=== PATIENT | female | born 1955 | race Caucasian/White ===

== ENCOUNTER → 2017-06-08 | Outpatient (CLI) | payer BC ==
[~2017-06-08] MED LIST: ACE3 PO; ASCO-182 PO; ASCO500C9 PO; ASPI-1471 PO; CALC500T6 PO; CHOL200074 PO; CYA1000 PO; CYAN100088 PO; ERGO400T10 PO; FERR159T PO; FERR55TA2 PO; FLU IM; GLUC-135 PO; GLUC-198 PO; LEV88 PO; LEVO-3 PO; LEVO-317 PO; LEVO88TA45 PO; OMEG-96 PO; VITA-200 PO; VITE400 PO
--- NOTE | 2017-06-09 10:27 | RADIOLOGY IMAGING REPORT ---
[place]AC[place] [facility] [place] NAME: SHANNON GRANT : [id number] MR: [id number] V: [id number] EXAM DATE: [id number] ORDERING PHYSICIAN: CRISTY JONES TECHNOLOGIST: Sandra Akins PROCEDURE:BILATERAL DIGITAL SCREENING MAMMOGRAM WITH CAD ASSISTED INTERPRETATION & 3D TOMOSYNTHESIS COMPARISON: Prior mammograms 05/14/16, 05/10/16, 05/09/15, 05/06/14, 05/03/13, 05/02/12 INDICATIONS:screening FINDINGS: Moderately heterogeneous fibroglandular tissue is seen throughout the breasts. The parenchymal pattern has remained stable allowing for difference in mammographic technique & patient positioning. There is no evidence of malignant appearing mass, malignant appearing calcifications or other secondary sign of malignancy in either breast. DIAGNOSTIC CATEGORY 1--NEGATIVE. RECOMMENDATIONS: ROUTINE MAMMOGRAM AND CLINICAL EVALUATION. IMPRESSION: BIRADS 1: Negative No significant abnormality is seen Dictated by: Bonny Prater M.D. on 06/08/2017 at 15:09 Transcribed by: MATEO on 06/08/2017 at 15:57 Approved by: Bonny Prater M.D. on 06/09/2017 at 10:26 [facility]
== END ==
LOC: MAMO 02:28
PROVIDERS: ATTEND Internal Medicine
DX: Z12.31 Encounter for screening mammogram for malignant neoplasm of breast (principal)
CPT/HCPCS: 77063; 77067

== ENCOUNTER 2017-06-16 09:29 | Outpatient (RCR) | payer BC ==
[2017-06-13 09:40] VITALS: BP 119/79
[2017-06-13 09:43] LABS: PLATELET COUNT, AUTOMATED 273 K/uL (150-450)
[2017-06-16 09:51] VITALS: BP 121/77
--- NOTE | 2017-06-17 03:42 | [facility] ONCOLOGY NOTE ---
EVENT DATE: June 16, 2017 DIAGNOSES 1. Stage II colon cancer. 2. Hypothyroidism. CHIEF COMPLAINT Patient is here today for followup of her colon cancer. ONCOLOGY HISTORY Karla is a 62-year-old female who was diagnosed with colon cancer at the age of 57 in July 2012. She had a strong family history of cancer. PRESENTATION Intermittent abdominal pain, diarrhea and abdominal pain. DIAGNOSTIC EVALUATION CT of abdomen done July 20, 2012 showed obstructing soft tissue mass at the hepatic flexure of the colon, compatible with colon cancer associated with small bowel obstruction and moderate distention, fluid-filled small bowel loops throughout the abdomen and pelvis. There was single sub-cm hypodensity in the left lobe of the liver. PROCEDURE Right hemicolectomy done on July 20, 2012. PATHOLOGY Positive for moderately differentiated colonic adenocarcinoma, 4 cm in size, grade II-III with tumor invading through the smooth muscle wall into the pericolonic adipose tissue. Twenty lymph nodes were negative for metastasis. STAGING WORKUP 1. PET/CT scan done September 27, 2012 was unremarkable except for 3 mm right lower lobe micro nodule, likely benign STAGE Stage II (t3N0M0). HISTORY OF PRESENT ILLNESS Patient is here today for followup of her colon cancer. She is doing very well currently, and she is totally asymptomatic. She had her colonoscopy for last year, and she had a polyp which was removed, and she is followed by Dr. Sharma for that. PAST MEDICAL HISTORY 1. Colon cancer. 2. Hypothyroidism. PAST SURGICAL HISTORY 1. July 2012 the patient had right hemicolectomy for colon cancer. 2. July 1984 the patient had tubal ligation. FAMILY HISTORY Sister had breast cancer in her forties. Brother with colon cancer in his fifties. Paternal grandmother with ovarian cancer in her eighties. Paternal cousin with breast cancer in her forties. SOCIAL HISTORY The patient is and has two children. 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 She never smoked. Denies any abuse of alcohol or illicit drugs. MEDICATIONS Ergocalciferol (Vitamin D2) (Vitamin D2)400 Unit [id number] Unit PO QDAY 01/22/14 Aspirin (Aspir 81)81 Mg Tablet.dr81 Mg PO QDAY 01/22/14 Levothyroxine Sodium 88 Mcg Dflzae56 Mcg PO QDAY 01/22/14 Calcium Carbonate (Calcium)500 Mg Dmkeqr721 Mg PO QDAY 01/22/14 [place]-3 Fatty Acids/Fish Oil ([place] 3 1,000 Mg Softgel)1 Each Capsule1 Each PO QDAY 12/25/13 Cholecalciferol (Vitamin D3) (Vitamin D-3)2,000 Unit Capsule2,000 Unit PO QDAY 12/25/13 Vitamin E Acetate (Vitamin E)400 Unit Hzqbhzg982 Unit PO QDAY 12/25/13 Ascorbic Acid (Vitamin C)500 Mg Capsule.er500 Mg PO QDAY 12/25/13 Glucosa Marcelino 2KCL/Chondroitin Marcelino (Glucosamine & Chondroitin Cap)1 Each Capsule1 Each PO QDAY 12/25/13 Ferrous Sulfate, Dried (Iron)159 Mg Tablet.er159 Mg PO QDAY 12/25/13 Cyanocobalamin (Vitamin B-12) (Vitamin B-12)1,000 Mcg Tablet1,000 Mcg PO QDAY 12/25/13 ALLERGIES No known drug allergies. REVIEW OF SYSTEMS CONSTITUTIONAL: No appetite or weight change. No fever, chills or sweating. No recent infection. HEENT: Ears: No tinnitus or hearing problem. Nose: No nasal discharge or epistaxis. Throat: No sore throat or mouth ulcers. Eyes: No diplopia or visual changes. RESPIRATORY: No shortness of breath. No cough, expectoration or hemoptysis. CARDIOVASCULAR: No chest pain, orthopnea, or paroxysmal nocturnal dyspnea (PND) . No edema. No palpitations. GASTROINTESTINAL: No nausea or vomiting. No diarrhea or constipation. No change in bowel movements. No heartburn or swallowing difficulties. No abdominal pain. No jaundice. No hematemesis, melena or rectal bleeding. GENITOURINARY: No hematuria or dysuria. MUSCULOSKELETAL: No pain in the muscles, joints or bones. NEUROLOGICAL: No tingling or numbness in the hands or feet. No headaches or convulsions. HEMATOLOGIC/LYMPHATIC: No bleeding or easy bruising. No weakness or fatigued. No enlarged lymph nodes. SKIN: No skin rash or lumps. PSYCHIATRIC: No anxiety or depression. PHYSICAL EXAMINATION GENERAL: Looks stable. Well-developed, well-nourished, and in no acute distress. VITAL SIGNS: Blood pressure 121/77, pulse 66 per minute, respirations 16 per minute, temperature 98.1, pulse oximetry 96% on room air. HEENT: Head: Atraumatic. No sinus tenderness to palpation. Eyes: No icterus or conjunctivitis. Mouth and throat: No oral thrush or mucositis. NECK: Supple. No cervical or supraclavicular lymphadenopathy. LUNGS: Clear to auscultation and percussion bilaterally. HEART: Regular rate and rhythm. No gallops, murmurs, clicks or rubs. ABDOMEN: Soft and lax. No tenderness. No hepatosplenomegaly. No masses. EXTREMITIES: No cyanosis, clubbing or edema. LYMPHATICS: No peripheral lymphadenopathy. NEUROLOGICAL: Conscious, alert and oriented times three. No focal motor or sensory deficits. PSYCHIATRIC: Mood and affect appear normal. SKIN: No skin rash, bruise or purpuric eruption. DIAGNOSTIC DATA CBC shows a white count 5000, hemoglobin 14.5, hematocrit 42.8, platelets 273, 000. Chem panel totally normal except blood sugar 71. CEA is normal at 2.3. ASSESSMENT 1. Stage II (T3 N0 M0) colonic adenocarcinoma status post right hemicolectomy done July 20, 2012 with 20 lymph nodes negative for metastasis. No adjuvant chemotherapy was indicated in her case. Patient currently in complete remission. Her CEA is normal at 2.3, which is also stable. I am planning to continue followup. I will see her again now in one year, as the patient is five years since her diagnosis, and I will check her CBC, chem panel and CEA with her next visit. 2. Hypothyroidism on thyroid supplement. PLAN 1. Continue followup. 2. Patient to return in one year with CBC, chem panel and CEA. 3. Patient is to contact us for any new concerns or complaints. NEAL
== END 2017-06-17 12:29 | disposition home or self-care (01) ==
LOC: ONC 09:29
PROVIDERS: ATTEND Internal Medicine Hematology
DX: Z85.038 Personal history of other malignant neoplasm of large intestine (principal); E03.9 Hypothyroidism, unspecified; Z79.82 Long term (current) use of aspirin; Z79.899 Other long term (current) drug therapy
CPT/HCPCS: 36415; 82040; 82247; 82310; 82374; 82378; 82435; 82565; 82947; 84075; 84132; 84155; 84295; 84450; 84460; 84520; 85025; 99212

== ENCOUNTER → 2018-06-09 | Outpatient (CLI) | payer BC ==
--- NOTE | 2018-06-09 14:24 | RADIOLOGY IMAGING REPORT ---
FACILITY: [facility] [place] PATIENT NAME: SHANNON GRANT : [id number] MR: [id number] V: [id number] EXAM DATE: [id number] ORDERING PHYSICIAN: CRISTY JONES TECHNOLOGIST: Louise Uribe PROCEDURE:BILATERAL DIGITAL SCREENING MAMMOGRAM WITH CAD ASSISTED INTERPRETATION & 3D TOMOSYNTHESIS COMPARISON:Prior mammograms 06/08/17, 05/14/16, 05/10/16, 05/09/15, 05/06/14, 05/03/13. INDICATIONS:SCREENING FINDINGS: There are areas of scattered fibroglandular density throughout the breasts. The parenchymal pattern has remained stable allowing for difference in mammographic technique & patient positioning. DIAGNOSTIC CATEGORY 1--NEGATIVE. RECOMMENDATIONS: ROUTINE MAMMOGRAM AND CLINICAL EVALUATION. IMPRESSION: BIRADS 1: Negative. No significant abnormality is seen Dictated by: Bonny Prater M.D. on 06/09/2018 at 10:51 Transcribed by: MATEO on 06/09/2018 at 14:16 Approved by: Bonny Prater M.D. on 06/09/2018 at 14:23 [facility]
== END ==
LOC: MAMO 05:25
PROVIDERS: ATTEND Internal Medicine
DX: Z12.31 Encounter for screening mammogram for malignant neoplasm of breast (principal)
CPT/HCPCS: 77063; 77067

== ENCOUNTER 2018-06-16 10:17 | Outpatient (RCR) | payer BC ==
[2018-06-09 09:39] LABS: PLATELET COUNT, AUTOMATED 316 K/uL (150-450)
[2018-06-09 09:59] VITALS: BP 112/72
[2018-06-16 10:34] VITALS: BP 123/76
[2018-06-16] MEDS ORDERED: LEVO-3 PO (10:36)
--- NOTE | 2018-06-16 12:07 | [facility] ONCOLOGY NOTE ---
EVENT DATE: June 16, 2018 DIAGNOSES 1. Stage II colon cancer. 2. Hypothyroidism. CHIEF COMPLAINT Patient is here today for followup of her colon cancer. ONCOLOGY HISTORY Karla is a 63-year-old female who was diagnosed with colon cancer at the age of 57 in July 2012. She had a strong family history of cancer. PRESENTATION Intermittent abdominal pain, diarrhea and abdominal pain. DIAGNOSTIC EVALUATION CT of abdomen done July 20, 2012 showed obstructing soft tissue mass at the hepatic flexure of the colon, compatible with colon cancer associated with small bowel obstruction and moderate distention, fluid-filled small bowel loops throughout the abdomen and pelvis. There was single sub-cm hypodensity in the left lobe of the liver. PROCEDURE Right hemicolectomy done on July 20, 2012. PATHOLOGY Positive for moderately differentiated colonic adenocarcinoma, 4 cm in size, grade II-III with tumor invading through the smooth muscle wall into the pericolonic adipose tissue. Twenty lymph nodes were negative for metastasis. STAGING WORKUP 1. PET/CT scan done September 27, 2012 was unremarkable except for 3 mm right lower lobe micro nodule, likely benign STAGE Stage II (t3N0M0). HISTORY OF PRESENT ILLNESS Patient is here today for followup of her colon cancer. She is doing well currently except for generalized aches from aging, especially in the back and elbows. She does not have any GI symptoms currently. PAST MEDICAL HISTORY 1. Colon cancer. 2. Hypothyroidism. PAST SURGICAL HISTORY 1. July 2012 the patient had right hemicolectomy for colon cancer. 2. July 1984 the patient had tubal ligation. FAMILY HISTORY Sister had breast cancer in her forties. Brother with colon cancer in his fifties. Paternal grandmother with ovarian cancer in her eighties. Paternal cousin with breast cancer in her forties. SOCIAL HISTORY The patient is and has two children. 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 She never smoked. Denies any abuse of alcohol or illicit drugs. MEDICATIONS Ergocalciferol (Vitamin D2) (Vitamin D2)400 Unit [id number] Unit PO QDAY 01/22/14 Aspirin (Aspir 81)81 Mg Tablet.dr81 Mg PO QDAY 01/22/14 Levothyroxine Sodium 88 Mcg Buivwc56 Mcg PO QDAY 01/22/14 Calcium Carbonate (Calcium)500 Mg Kcxscr969 Mg PO QDAY 01/22/14 [place]-3 Fatty Acids/Fish Oil ([place] 3 1,000 Mg Softgel)1 Each Capsule1 Each PO QDAY 12/25/13 Cholecalciferol (Vitamin D3) (Vitamin D-3)2,000 Unit Capsule2,000 Unit PO QDAY 12/25/13 Vitamin E Acetate (Vitamin E)400 Unit Jydvtdo684 Unit PO QDAY 12/25/13 Ascorbic Acid (Vitamin C)500 Mg Capsule.er500 Mg PO QDAY 12/25/13 Glucosa Marcelino 2KCL/Chondroitin Marcelino (Glucosamine & Chondroitin Cap)1 Each Capsule1 Each PO QDAY 12/25/13 Ferrous Sulfate, Dried (Iron)159 Mg Tablet.er159 Mg PO QDAY 12/25/13 Cyanocobalamin (Vitamin B-12) (Vitamin B-12)1,000 Mcg Tablet1,000 Mcg PO QDAY 12/25/13 ALLERGIES No known drug allergies. REVIEW OF SYSTEMS CONSTITUTIONAL: No appetite or weight change. No fever, chills or sweating. No recent infection. HEENT: Ears: No tinnitus or hearing problem. Nose: No nasal discharge or epistaxis. Throat: No sore throat or mouth ulcers. Eyes: No diplopia or visual changes. RESPIRATORY: No shortness of breath. No cough, expectoration or hemoptysis. CARDIOVASCULAR: No chest pain, orthopnea, or paroxysmal nocturnal dyspnea (PND). No edema. No palpitations. GASTROINTESTINAL: No nausea or vomiting. No diarrhea or constipation. No change in bowel movements. No heartburn or swallowing difficulties. No abdominal pain. No jaundice. No hematemesis, melena or rectal bleeding. GENITOURINARY: No hematuria or dysuria. MUSCULOSKELETAL: She has generalized aches from her age but mainly in the back and elbows. NEUROLOGICAL: No tingling or numbness in the hands or feet. No headaches or convulsions. HEMATOLOGIC/LYMPHATIC: No bleeding or easy bruising. No weakness or fatigued. No enlarged lymph nodes. SKIN: No skin rash or lumps. PSYCHIATRIC: No anxiety or depression. PHYSICAL EXAMINATION GENERAL: Looks stable. Well-developed, well-nourished, and in no acute distress. VITAL SIGNS: Blood pressure 123/76, pulse 66 per minute, respirations 16 per minute, temperature 97.2, pulse oximetry 94% on room air. HEENT: Head: Atraumatic. No sinus tenderness to palpation. Eyes: No icterus or conjunctivitis. Mouth and throat: No oral thrush or mucositis. NECK: Supple. No cervical or supraclavicular lymphadenopathy. LUNGS: Clear to auscultation and percussion bilaterally. HEART: Regular rate and rhythm. No gallops, murmurs, clicks or rubs. ABDOMEN: Soft and lax. No tenderness. No hepatosplenomegaly. No masses. EXTREMITIES: No cyanosis, clubbing or edema. LYMPHATICS: No peripheral lymphadenopathy. NEUROLOGICAL: Conscious, alert and oriented times three. No focal motor or sensory deficits. PSYCHIATRIC: Mood and affect appear normal. SKIN: No skin rash, bruise or purpuric eruption. DIAGNOSTIC DATA CBC shows white count 5.2, hemoglobin 14.1, hematocrit 41.7, platelets 316,000. Chem panel totally normal except BUN 22. CEA is 1.8, which is down from 2.8 last year. ASSESSMENT 1. Stage II (T3 N0 M0) colonic adenocarcinoma, status post right hemicolectomy done July 20, 2012 with 20 lymph nodes negative for metastasis. No adjuvant chemotherapy was indicated in her case. Patient currently in complete remission. Her CEA is normal at 1.8, which is actually down from 2.3 last year. I am planning to continue followup. I will see her again in one year with CBC, chem panel and CEA. 2. Hypothyroidism, on thyroid supplement. PLAN 1. Continue followup. 2. Patient to return in one year with CBC, chem panel and CEA. 3. Patient is to contact us for any new concerns or complaints. [facility]
== END 2018-08-02 08:58 | disposition home or self-care (01) ==
LOC: ONC 10:17
PROVIDERS: ATTEND Internal Medicine Hematology
DX: Z85.038 Personal history of other malignant neoplasm of large intestine (principal); E03.9 Hypothyroidism, unspecified; Z79.899 Other long term (current) drug therapy
CPT/HCPCS: 36415; 82040; 82247; 82310; 82374; 82378; 82435; 82565; 82947; 84075; 84132; 84155; 84295; 84450; 84460; 84520; 85025; 99212